=== PATIENT | female | born 2000 ===

== ENCOUNTER 2019-06-06 19:37 | Emergency (ER) | payer SELFPAY ==
--- NOTE | 2019-06-06 20:43 | CT ---
CT HEAD NONCONTRAST: 06/06/19 HISTORY: Head injury. FINDINGS: There is no evidence of acute intracranial hemorrhage or infarct. The ventricles appear normal in siz e, shape and position. There is no mass effect or shift of midline structures. The visualized paranas al sinuses remain well aerated. IMPRESSION: No acute intracranial abnormalities are demonstrated. POS: BST
== END 2019-06-06 21:13 | disposition home or self-care (01) ==
LOC: ERS 19:37
DX: S06.0X0A Concussion without loss of consciousness, initial encounter (principal); W21.05XA Struck by basketball, initial encounter; Y93.67 Activity, basketball
CPT/HCPCS: 70450